=== PATIENT | female | born 1945 | race Caucasian/White ===

== ENCOUNTER 2018-05-09 18:16 | Inpatient (IN) ==
[2018-05-09 18:39] LABS: Baso % (Auto) 0.6 % (0.0-2.0); Eos % (Auto) 0.2 % (0.0-4.0); Hematocrit 44.2 % (35.0-46.0); Hemoglobin 15.4 gm/dL (11.6-15.3); Lymph # (Auto) 2.3 th/mm3 (1.0-4.8); Lymph % (Auto) 30.4 % (9.0-44.0); Mean Corpuscular HGB Conc 34.9 % (32.0-36.0); Mean Corpuscular Hemoglobin 30.1 pg (27.0-34.0); Mean Corpuscular Volume 86.4 fL (80.0-100.0); Mean Platelet Volume 8.9 fL (7.0-11.0); Mono # (Auto) 0.4 th/mm3 (0.0-0.9); Mono % (Auto) 5.8 % (0.0-8.0); Neut # (Auto) 4.9 th/mm3 (1.8-7.7); Platelet Count 242 th/mm3 (150-450); Red Blood Count 5.12 mil/mm3 (4.00-5.30); Red Cell Distribution Width 12.7 % (11.6-17.2); White Blood Count 7.7 th/mm3 (4.0-11.0)
--- NOTE | 2018-05-09 18:51 | CT ---
EXAM DATE: 05/09/2018 6:44 PM EST AGE/SEX: 72 years / Female INDICATIONS: Stroke alert. Confusion at yoga this morning and slurred speech. CLINICAL DATA: This is the patient's initial encounter. Patient reports that signs and symptoms have been present for 1 day and indicates a pain score of 0/10. MEDICAL/SURGICAL HISTORY: None. None. RADIATION DOSE: 60.17 CTDI (mGy) COMPARISON: No prior exams available for comparison. TECHNIQUE: CT of the head without contrast. Using automated exposure control and adjustment of the mA and/or kV according to patient size, radiation dose was kept as low as reasonably achievable to ob tain optimal diagnostic quality images. DICOM format image data is available electronically for revi ew and comparison. FINDINGS: Cerebrum: The ventricles are normal for age. No evidence of midline shift, mass lesion, hemorrhage or acute infarction. No extraaxial fluid collections are seen. Posterior Fossa: The cerebellum and brainstem are intact. The 4th ventricle is midline. The cerebe llopontine angle is unremarkable. Extracranial: The visualized portion of the orbits is intact. Skull: The calvaria is intact. No evidence of skull fracture. CONCLUSION: 1. Negative noncontrast CT brain. Report was called to Dr. Shelley at 6:48 pm. Electronically signed by: Kishore Claudio MD 05/09/2018 6:49 PM EST
[2018-05-09 18:52] LABS: Activated Partial Thrombo Time 26.5 sec (23.4-31.7); Prothrombin Time 10.2 sec (9.8-11.6)
[2018-05-09 18:56] LABS: Creatine Kinase 312 U/L (26-192)
[2018-05-09 18:57] LABS: Beta HCG,Quantitative 6 mIU/mL (0-5)
--- NOTE | 2018-05-09 19:03 | CT ---
EXAM DATE: 05/09/2018 6:56 PM EST AGE/SEX: 72 years / Female INDICATIONS: Stroke alert. Confusion and slurred speech at yoga this morning. CLINICAL DATA: This is the patient's initial encounter. Patient reports that signs and symptoms have been present for 1 day and indicates a pain score of 0/10. MEDICAL/SURGICAL HISTORY: None. None. RADIATION DOSE: 43.15 CTDI (mGy) ; Combined studies COMPARISON: [facility], CT HEAD W/O CONTRAST, 05/09/2018. . TECHNIQUE: Volumetric scanning was performed using a multi-row detector CT scanner during bolus infu flora of 85 ml Omnipaque 350 (iohexol) nonionic water-soluble contrast as a cumulative dose for multi ple exams. The data was post processed with a variety of visualization algorithms including full vo lume maximum intensity projection, multi-planar sliding thin slab reformation, curved planar reformat ion, and surface rendering techniques. Using automated exposure control and adjustment of the mA and /or kV according to patient size, radiation dose was kept as low as reasonably achievable to obtain o ptimal diagnostic quality images. DICOM format image data is available electronically for review and comparison. FINDINGS: Anterior Circulation: Intracranial Carotid Arteries: Patent. KIP: There is no evidence for aneurysm, vessel truncation or stenosis, and no evidence for vascular m alformation. MCA: There is no evidence for aneurysm, vessel truncation or stenosis, and no evidence for vascular m alformation. Posterior Circulation: Distal Vertebral Arteries: Dominant left vertebral artery. Basilar Artery: There is no evidence for aneurysm, vessel truncation or stenosis, and no evidence for vascular malformation. SLIP LASTER and Cerebellar Branches: There is no evidence for aneurysm, vessel truncation or stenosis, and no evidence for vascular malformation. CONCLUSION: 1. Unremarkable CTA examination of the head. Specifically, no evidence for large vessel occlusion. Report was called by Dr. Meneses to Dr. Benoit at 7:00 PM.] Electronically signed by: Jake Veronica MD 05/09/2018 7:01 PM EST
--- NOTE | 2018-05-09 19:06 | ED ---
HPI General Chief Complaint: Neuro Symptoms/Deficit Stated Complaint: Syncopal episode this am Time Seen by Provider: 05/09/18 18:29 Source: patient and family Mode of arrival: ambulatory Limitations: no limitations History of Present Illness HPI Narrative: Patient is a 72-year-old female, past medical history significant for TIAs on aspirin but no blood thinners, who presents with complaint of difficulty speaking, slurred speech, dizziness that began at approximately 9 AM this morning with some confusion. Her family thinks her symptoms have slightly improved but are definitely still present with the exception of the dizziness. She denies any focal numbness or weakness at this time and denies any difficulty swallowing. No fevers nor chills. No chest pain , abdominal pain, shortness of breath. No cough nor congestion. She has not had any recent trauma. Onset (ago): hour(s) Timing confirmed by: spouse Location: Reports speech, dysarthria and altered History of same: Yes Severity: moderate Relieving factors: time Exacerbating factors: none Context: Reports sudden onset On Anticoagulants: No Associated symptoms: Reports confusion Treatments Prior to Arrival: Reports Aspirin Related Data Home Medications Medication Instructions Recorded Confirmed aspirin 81 mg PO DAILY 05/09/18 05/09/18 losartan-hydrochlorothiazide 1 tab PO DAILY 05/09/18 05/09/18 simvastatin 20 mg PO QPM 05/09/18 05/09/18 Allergies Allergy/AdvReac Type Severity Reaction Status Date / Time No Known Allergies Allergy Verified 05/09/18 18:38 Review of Systems ROS: all other systems reviewed are negative [facility] Family History Family History Mother Stroke Other Cardiovascular disease Social History Social History Substance History: No History of Abuse Second Hand Smoke Exposure: No Smoking Status: Former smoker How Often Do You Have a Drink Containing Alcohol: 2 to 3 times a week Recent Travel in [facility] within the Last 8 Weeks: No Recent Out of Country Travel within the Last 8 Weeks: No Exam Narrative Exam Narrative: GENERAL: Well-appearing female in no acute distress SKIN: Focused skin assessment warm/dry. HEAD: Atraumatic. Normocephalic. EYES: Pupils equal and round. No scleral icterus. No injection or drainage. ENT: No nasal bleeding or discharge. Mucous membranes pink and moist. NECK: Trachea midline. No JVD. CARDIOVASCULAR: Regular rate and rhythm. No murmur appreciated. Intact and equal peripheral pulses. RESPIRATORY: No accessory muscle use. Clear to auscultation. Breath sounds equal bilaterally. GASTROINTESTINAL: Abdomen soft, non-tender, nondistended. Hepatic and splenic margins not palpable. MUSCULOSKELETAL: No obvious deformities. No clubbing. No cyanosis. No edema. NEUROLOGICAL: Awake and alert. Some dysarthria and aphasia. No dysmetria nor ataxia. No visual field deficits. No pronator drift. No facial droop. No numbness nor weakness focally. PSYCHIATRIC: Appropriate mood and affect; insight and judgment normal. Course Initial Documented Vital Signs Pulse Rate 79 05/09/18 18:29 Pulse Oximetry 98 05/09/18 18:29 Last Documented Vital Signs Temperature 98.4 F 05/10/18 12:00 Pulse Rate 62 05/10/18 12:00 Respiratory Rate 20 05/10/18 12:00 Blood Pressure 144/82 H 05/10/18 12:00 Pulse Oximetry 96 05/10/18 12:00 Sign Out Sign Out Data: Patient Sign Out occurred on 05/09/18 at 19:27. Patient's care was discussed, and care was transferred from Vanessa Shelley MD to Barbara Lee MD. Sign Out Comment: Labs, EKG pending. Dr Lee made aware of Dr Benoit's recommendations. Last updated by Vanessa Shelley MD at 05/09/18 19:16 Post-Handoff Eval: Accepted in transfer of care from Dr. Shelley Medical Decision Making [facility] Narrative Medical decision making narrative: Patient is a 72-year-old female who presents approximately 12 hours after the onset of slurred speech, aphasia, confusion with dizziness. The dizziness has resolved. She is alert but still confused with dysarthria and aphasia on arrival here thus stroke alert was then activated. CT of the head without contrast did not reveal any acute hemorrhage and CTAs were then done and did not reveal large thrombosis. EKG and labs pending at time of check out. Prior to check out Dr Benoit recommended: Head of bed flat with NS @ 70cc/hr MRI, Holter monitor and Echo. 75 mg plavix in addition to her 325 mg aspirin if she passes her swallow Heparin 5000 units bid subcutaneously unless she is in Afib. If she is in Afib , he wants to be called back. Accepted in transfer of care from Dr. Shelley for follow-up of pending labs EKG shows NSR, no ST elevation or depression, and no arrhythmias. No significant T -wave inversions. And imaging patient has already had CT noncontrast and CTA's resulted and reviewed with the neurologist with neurology recommendations. Patient will require admission to medicine service. Patient here does not appear to have slurring of speech at this time but does have significant memory disturbance and has repetitive questioning. EKG is sinus rhythm with no acute ST elevation injury pattern or ectopy noted. At 8:10 PM patient's case discussed with on-call medicine coverage Dr. Rai for admission she has been informed of the recommendations per the neurologist and states she will enter these orders along with the consult for neurology Medical Screen Exam Complete: Yes Emergency Medical Condition: Yes Differential Diagnosis Differential Diagnosis: Differential diagnosis includes but is not limited to TIA, CVA, hypoglycemia. Medical Records Medical records reviewed: Yes I reviewed the patient's medical records. Lab Data Lab results reviewed: Yes I reviewed the patient's lab results. Result diagrams: 05/09/18 18:22 05/09/18 18:22 Lab Results 05/09/18 05/09/18 05/09/18 Range/Units 18:22 18:22 18:22 CBC w Diff Auto diff final WBC 7.7 (4.0-11.0) th/mm3 RBC 5.12 (4.00-5.30) mil/mm3 Hgb 15.4 H (11.6-15.3) gm/dL Hct 44.2 (35.0-46.0) % MCV 86.4 (80.0-100.0) fL MCH 30.1 (27.0-34.0) pg MCHC 34.9 (32.0-36.0) % RDW 12.7 (11.6-17.2) % Plt Count 242 (150-450) th/mm3 MPV 8.9 (7.0-11.0) fL Neut % (Auto) 63.0 (16.0-70.0) % Lymph % (Auto) 30.4 (9.0-44.0) % [place] % (Auto) 5.8 (0.0-8.0) % Eos % (Auto) 0.2 (0.0-4.0) % Baso % (Auto) 0.6 (0.0-2.0) % Neut # (Auto) 4.9 (1.8-7.7) th/mm3 Lymph # (Auto) 2.3 (1.0-4.8) th/mm3 [place] # (Auto) 0.4 (0.0-0.9) th/mm3 Eos # (Auto) 0.0 (0.0-0.4) th/mm3 Baso # (Auto) 0.0 (0.0-0.2) th/mm3 WBC Differential . Differential Comment . PT 10.2 (9.8-11.6) sec INR 1.0 Ratio APTT 26.5 (23.4-31.7) sec Fibrinogen 336 (227-377) mg/dL Sodium 139 (136-145) meq/L Potassium 3.7 (3.5-5.1) meq/L Chloride 104 (98-107) meq/L Carbon Dioxide 26.7 (21.0-32.0) meq/L Anion Gap 8 (5-15) meq/L BUN 13 (7-18) mg/dL Creatinine 0.88 (0.50-1.00) mg/dL Estimated GFR 64 L (>89) mL/min POC Glucose (68-110) mg/dl Random Glucose 106 (74-106) mg/dL Calcium 9.4 (8.5-10.1) mg/dL Total Creatine Kinase 312 H (26-192) U/L CK-MB (CK-2) 1.7 (0.5-3.6) ng/mL CK-MB (CK-2) % 0.5 (0.0-4.0) % Troponin I Less than 0.02 L (0.02-0.05) ng/mL Triglycerides (42-150) mg/dL Cholesterol (120-200) mg/dL LDL Cholesterol, Calc (0-99) mg/dL HDL Cholesterol (40.0-60.0) mg/dL Cholesterol/HDL Ratio Ratio TSH (0.358-3.740) uIU/mL Beta HCG, Quant 6 H (0-5) mIU/mL Urine Color (Yellw/Straw) Urine Clarity (Clear) Urine pH (5.0-8.5) Ur Specific [place] (1.002-1.035) Urine Protein (Neg-Trace) mg/dL Urine Glucose (UA) (Negative) mg/dL Urine Ketones (Negative) mg/dL Urine Occult Blood (Negative) Urine Nitrate (Negative) Urine Bilirubin (Negative) Urine Urobilinogen (Less than 2) mg/dL Ur Leukocyte Esterase (Negative) Urine RBC (0-3) /hpf Micro UA Comment Ur Microscopic Review Urine Culture Comments Urine Opiates Screen (Neg) Ur Barbiturates Screen (Neg) Ur Amphetamines Screen (Neg) U Benzodiazepines Scrn (Neg) Urine Cocaine Screen (Neg) U Cannabinoids Screen (Neg) Blood Type Antibody Screen 05/09/18 05/09/18 05/09/18 Range/Units 18:22 19:10 19:10 CBC w Diff WBC (4.0-11.0) th/mm3 RBC (4.00-5.30) mil/mm3 Hgb (11.6-15.3) gm/dL Hct (35.0-46.0) % MCV (80.0-100.0) fL MCH (27.0-34.0) pg MCHC (32.0-36.0) % RDW (11.6-17.2) % Plt Count (150-450) th/mm3 MPV (7.0-11.0) fL Neut % (Auto) (16.0-70.0) % Lymph % (Auto) (9.0-44.0) % [place] % (Auto) (0.0-8.0) % Eos % (Auto) (0.0-4.0) % Baso % (Auto) (0.0-2.0) % Neut # (Auto) (1.8-7.7) th/mm3 Lymph # (Auto) (1.0-4.8) th/mm3 [place] # (Auto) (0.0-0.9) th/mm3 Eos # (Auto) (0.0-0.4) th/mm3 Baso # (Auto) (0.0-0.2) th/mm3 WBC Differential Differential Comment PT (9.8-11.6) sec INR Ratio APTT (23.4-31.7) sec Fibrinogen (227-377) mg/dL Sodium (136-145) meq/L Potassium (3.5-5.1) meq/L Chloride (98-107) meq/L Carbon Dioxide (21.0-32.0) meq/L Anion Gap (5-15) meq/L BUN (7-18) mg/dL Creatinine (0.50-1.00) mg/dL Estimated GFR (>89) mL/min POC Glucose (68-110) mg/dl Random Glucose (74-106) mg/dL Calcium (8.5-10.1) mg/dL Total Creatine Kinase (26-192) U/L CK-MB (CK-2) (0.5-3.6) ng/mL CK-MB (CK-2) % (0.0-4.0) % Troponin I (0.02-0.05) ng/mL Triglycerides (42-150) mg/dL Cholesterol (120-200) mg/dL LDL Cholesterol, Calc (0-99) mg/dL HDL Cholesterol (40.0-60.0) mg/dL Cholesterol/HDL Ratio Ratio TSH (0.358-3.740) uIU/mL Beta HCG, Quant (0-5) mIU/mL Urine Color Straw (Yellw/Straw) Urine Clarity Clear (Clear) Urine pH 7.5 (5.0-8.5) Ur Specific [place] Less/equal 1.005 (1.002-1.035) Urine Protein Negative (Neg-Trace) mg/dL Urine Glucose (UA) Negative (Negative) mg/dL Urine Ketones Negative (Negative) mg/dL Urine Occult Blood Small H (Negative) Urine Nitrate Negative (Negative) Urine Bilirubin Negative (Negative) Urine Urobilinogen 0.2 (Less than 2) mg/dL Ur Leukocyte Esterase Negative (Negative) Urine RBC 0-3 (0-3) /hpf Micro UA Comment Culture not ind Ur Microscopic Review Microscopic reviewed Urine Culture Comments Culture not ind Urine Opiates Screen Neg (Neg) Ur Barbiturates Screen Neg (Neg) Ur Amphetamines Screen Neg (Neg) U Benzodiazepines Scrn Neg (Neg) Urine Cocaine Screen Neg (Neg) U Cannabinoids Screen Neg (Neg) Blood Type O Positive Antibody Screen Negative 05/10/18 05/10/18 05/10/18 Range/Units 04:55 04:55 09:29 CBC w Diff WBC (4.0-11.0) th/mm3 RBC (4.00-5.30) mil/mm3 Hgb (11.6-15.3) gm/dL Hct (35.0-46.0) % MCV (80.0-100.0) fL MCH (27.0-34.0) pg MCHC (32.0-36.0) % RDW (11.6-17.2) % Plt Count (150-450) th/mm3 MPV (7.0-11.0) fL Neut % (Auto) (16.0-70.0) % Lymph % (Auto) (9.0-44.0) % [place] % (Auto) (0.0-8.0) % Eos % (Auto) (0.0-4.0) % Baso % (Auto) (0.0-2.0) % Neut # (Auto) (1.8-7.7) th/mm3 Lymph # (Auto) (1.0-4.8) th/mm3 [place] # (Auto) (0.0-0.9) th/mm3 Eos # (Auto) (0.0-0.4) th/mm3 Baso # (Auto) (0.0-0.2) th/mm3 WBC Differential Differential Comment PT (9.8-11.6) sec INR Ratio APTT (23.4-31.7) sec Fibrinogen (227-377) mg/dL Sodium (136-145) meq/L Potassium (3.5-5.1) meq/L Chloride (98-107) meq/L Carbon Dioxide (21.0-32.0) meq/L Anion Gap (5-15) meq/L BUN (7-18) mg/dL Creatinine (0.50-1.00) mg/dL Estimated GFR (>89) mL/min POC Glucose 123 H (68-110) mg/dl Random Glucose (74-106) mg/dL Calcium (8.5-10.1) mg/dL Total Creatine Kinase (26-192) U/L CK-MB (CK-2) (0.5-3.6) ng/mL CK-MB (CK-2) % (0.0-4.0) % Troponin I (0.02-0.05) ng/mL Triglycerides 145 (42-150) mg/dL Cholesterol 209 H (120-200) mg/dL LDL Cholesterol, Calc 123 H (0-99) mg/dL HDL Cholesterol 57.3 (40.0-60.0) mg/dL Cholesterol/HDL Ratio 3.64 Ratio TSH 1.010 (0.358-3.740) uIU/mL Beta HCG, Quant (0-5) mIU/mL Urine Color (Yellw/Straw) Urine Clarity (Clear) Urine pH (5.0-8.5) Ur Specific [place] (1.002-1.035) Urine Protein (Neg-Trace) mg/dL Urine Glucose (UA) (Negative) mg/dL Urine Ketones (Negative) mg/dL Urine Occult Blood (Negative) Urine Nitrate (Negative) Urine Bilirubin (Negative) Urine Urobilinogen (Less than 2) mg/dL Ur Leukocyte Esterase (Negative) Urine RBC (0-3) /hpf Micro UA Comment Ur Microscopic Review Urine Culture Comments Urine Opiates Screen (Neg) Ur Barbiturates Screen (Neg) Ur Amphetamines Screen (Neg) U Benzodiazepines Scrn (Neg) Urine Cocaine Screen (Neg) U Cannabinoids Screen (Neg) Blood Type Antibody Screen 05/10/18 Range/Units 10:00 CBC w Diff WBC (4.0-11.0) th/mm3 RBC (4.00-5.30) mil/mm3 Hgb (11.6-15.3) gm/dL Hct (35.0-46.0) % MCV (80.0-100.0) fL MCH (27.0-34.0) pg MCHC (32.0-36.0) % RDW (11.6-17.2) % Plt Count (150-450) th/mm3 MPV (7.0-11.0) fL Neut % (Auto) (16.0-70.0) % Lymph % (Auto) (9.0-44.0) % [place] % (Auto) (0.0-8.0) % Eos % (Auto) (0.0-4.0) % Baso % (Auto) (0.0-2.0) % Neut # (Auto) (1.8-7.7) th/mm3 Lymph # (Auto) (1.0-4.8) th/mm3 [place] # (Auto) (0.0-0.9) th/mm3 Eos # (Auto) (0.0-0.4) th/mm3 Baso # (Auto) (0.0-0.2) th/mm3 WBC Differential Differential Comment PT (9.8-11.6) sec INR Ratio APTT (23.4-31.7) sec Fibrinogen (227-377) mg/dL Sodium (136-145) meq/L Potassium (3.5-5.1) meq/L Chloride (98-107) meq/L Carbon Dioxide (21.0-32.0) meq/L Anion Gap (5-15) meq/L BUN (7-18) mg/dL Creatinine (0.50-1.00) mg/dL Estimated GFR (>89) mL/min POC Glucose (68-110) mg/dl Random Glucose (74-106) mg/dL Calcium (8.5-10.1) mg/dL Total Creatine Kinase 248 H (26-192) U/L CK-MB (CK-2) 1.3 (0.5-3.6) ng/mL CK-MB (CK-2) % 0.5 (0.0-4.0) % Troponin I (0.02-0.05) ng/mL Triglycerides (42-150) mg/dL Cholesterol (120-200) mg/dL LDL Cholesterol, Calc (0-99) mg/dL HDL Cholesterol (40.0-60.0) mg/dL Cholesterol/HDL Ratio Ratio TSH (0.358-3.740) uIU/mL Beta HCG, Quant (0-5) mIU/mL Urine Color (Yellw/Straw) Urine Clarity (Clear) Urine pH (5.0-8.5) Ur Specific [place] (1.002-1.035) Urine Protein (Neg-Trace) mg/dL Urine Glucose (UA) (Negative) mg/dL Urine Ketones (Negative) mg/dL Urine Occult Blood (Negative) Urine Nitrate (Negative) Urine Bilirubin (Negative) Urine Urobilinogen (Less than 2) mg/dL Ur Leukocyte Esterase (Negative) Urine RBC (0-3) /hpf Micro UA Comment Ur Microscopic Review Urine Culture Comments Urine Opiates Screen (Neg) Ur Barbiturates Screen (Neg) Ur Amphetamines Screen (Neg) U Benzodiazepines Scrn (Neg) Urine Cocaine Screen (Neg) U Cannabinoids Screen (Neg) Blood Type Antibody Screen Imaging Data Radiologist's impression: Chest X-Ray 05/09/18 18:29 CONCLUSION: Linear atelectasis left costophrenic angle; otherwise, the lungs are clear.. Head CT 05/09/18 18:29 CONCLUSION: 1. Negative noncontrast CT brain. Report was called to Dr. Shelley at 6:48 pm. Head CTA 05/09/18 18:29 CONCLUSION: 1. Unremarkable CTA examination of the head. Specifically, no evidence for large vessel occlusion. Report was called by Dr. Meneses to Dr. Benoit at 7:00 PM.] Neck CTA 05/09/18 18:29 CONCLUSION: 1. No hemodynamically significant carotid flow-limiting stenosis or dissection. 2. Very small caliber right vertebral artery with dominant left vertebral artery. 3. 2 cm nodule in the thyroid isthmus. This can be further evaluated with ultrasound on an outpatient basis as clinically indicated. Head MRI 05/10/18 07:03 CONCLUSION: 1. No acute infarct, acute hemorrhage, midline shift or extra-axial fluid collection. 2. Minimal periventricular and subcortical white matter small vessel ischemic changes bilaterally. 3. Empty sella. Head MRA 05/10/18 07:03 CONCLUSION: 1. 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 This area measures approximately 2.7 x 3.9 mm. The left A1 appears to arise directly from this. 2. Incidental atretic right vertebral. 3. No large or central vessel occlusion. ECG Data Attestation: I personally reviewed and interpreted this ECG as follows: Prior ECG tracings: not available for review Discharge Plan Discharge Disposition Patient Disposition: 30 Still Patient Discharge Condition Condition: Stable Discharge Details Diagnosis: CVA (cerebral vascular accident) Physicians Team ED Provider: Barbara Lee Primary Care Provider: Micheal Kc Attending Provider: Jamie Woodard Status ED Status: Left Department Discharge Information Discharge Date/Time: 05/09/18 22:00
[2018-05-09 19:08] LABS: CKMB Percent 0.5 % (0.0-4.0); Creatine Kinase MB 1.7 ng/mL (0.5-3.6)
--- NOTE | 2018-05-09 19:13 | XR ---
EXAM DATE: 05/09/2018 7:07 PM EST AGE/SEX: 72 years / Female INDICATIONS: Stroke alert. CLINICAL DATA: This is the patient's initial encounter. Patient reports that signs and symptoms have been present for 1 day and indicates a pain score of Nonresponsive. MEDICAL/SURGICAL HISTORY: None. None. COMPARISON: No prior exams available for comparison. FINDINGS: A single AP view of the chest demonstrates the lungs to be symmetrically aerated without evidence of mass, infiltrate or effusion. Linear atelectasis in the left costophrenic angle. The cardiomediastin al contours are unremarkable. Moderate degenerative changes in bilateral AC joints.. CONCLUSION: Linear atelectasis left costophrenic angle; otherwise, the lungs are clear.. Electronically signed by: Kishore Claudio MD 05/09/2018 7:11 PM EST
[2018-05-09 19:26] LABS: Bilirubin,Urine Negative (Negative); Clarity,Urine Clear (Clear); Glucose,Urine (UA) Negative (Negative); Leukocyte Esterase,Urine Negative (Negative); Nitrite,Urine Negative (Negative); PH,Urine 7.5 (5.0-8.5); Specific Gravity,Urine Less/Equal 1.005 (1.002-1.035); Urobilinogen,Urine 0.2 mg/dL (Less than 2)
[2018-05-09 19:29] LABS: Color,Urine Straw (Yellw/Straw)
[2018-05-09 19:31] LABS: RBC,Urine 0-3 /hpf (0-3)
[2018-05-09 19:35] LABS: Amphetamine Screen,Urine Neg (Neg); Barbiturate Screen,Urine Neg (Neg); Cannabinoid Screen,Urine Neg (Neg); Cocaine Screen,Urine Neg (Neg)
--- NOTE | 2018-05-09 19:35 | CT ---
EXAM DATE: 05/09/2018 7:12 PM EST AGE/SEX: 72 years / Female INDICATIONS: Stroke alert. Confusion and slurred speech during yoga this morning. CLINICAL DATA: This is the patient's initial encounter. Patient reports that signs and symptoms have been present for 1 day and indicates a pain score of 0/10. MEDICAL/SURGICAL HISTORY: None. None. RADIATION DOSE: 43.15 CTDI (mGy) ; Combined studies COMPARISON: No prior exams available for comparison. TECHNIQUE: Volumetric scanning was performed using a multirow detector CT scanner during bolus infus ion of 85 ml Visipaque 320 (iodixanol) nonionic water-soluble contrast as a cumulative dose for mult iple exams. The data was postprocessed with a variety of visualization algorithms including full-vo lume maximum intensity projection, multiplanar sliding thin-slab reformation, curved-planar reformati on, and surface-rendering techniques. Using automated exposure control and adjustment of the mA and/ or kV according to patient size, radiation dose was kept as low as reasonably achievable to obtain op timal diagnostic quality images. DICOM format image data is available electronically for review and comparison. Percent stenosis is calculated using the diameter of the stenotic region over the diameter of the nor mal distal internal carotid artery. FINDINGS: Aortic Arch: There is a three-vessel origin of the great vessels from the aorta. No evidence of ost ial narrowing Right Carotid: The common carotid artery is intact. The carotid bulb has a normal configuration wit hout ulceration or narrowing. The internal carotid artery lumen is patent. There is mild probable re dundancy in the mid to distal cervical segment. I believe this is too focal to reflect beaded appeara nce. The external carotid artery is intact. Left Carotid: The common carotid artery is intact. The carotid bulb has a normal configuration with out ulceration or narrowing. Minimal calcified plaque at the origin of the internal carotid artery w ithout flow-limiting stenosis. The internal carotid artery lumen is otherwise patent. The external c arotid artery is intact. Vertebrals: Dominant left vertebral artery with very small caliber right vertebral artery throughout . General Findings: Lung apices are clear. 1.8 x 2.0 cm hypodense nodule in the isthmus of the thyroid. No significant adenopathy. CONCLUSION: 1. No hemodynamically significant carotid flow-limiting stenosis or dissection. 2. Very small caliber right vertebral artery with dominant left vertebral artery. 3. 2 cm nodule in the thyroid isthmus. This can be further evaluated with ultrasound on an outpatien t basis as clinically indicated. Electronically signed by: Jake Veronica MD 05/09/2018 7:34 PM EST
[2018-05-09 19:38] LABS: Chloride 104 meq/L (98-107); Potassium 3.7 meq/L (3.5-5.1); Sodium 139 meq/L (136-145)
[2018-05-09 19:40] LABS: Calcium 9.4 mg/dL (8.5-10.1)
[2018-05-09 19:41] LABS: Opiate Screen,Urine Neg (Neg)
[2018-05-09 19:41] LABS: Anion Gap 8 meq/L (5-15); Blood Urea Nitrogen 13 mg/dL (7-18); Carbon Dioxide 26.7 meq/L (21.0-32.0); Glucose,Random 106 mg/dL (74-106)
[2018-05-09 19:44] LABS: Glomerular Filtration Rate 64 mL/min (>89)
[2018-05-09] MEDS: Sod Chloride 0.9% Inj 1,000 ML IV.CONT SCH ×2 (20:00→23:33)
[2018-05-09] MEDS ORDERED: Dextrose 50% in Water 50 ML Vial IV.PUSH PRN (20:09)
[2018-05-09] MEDS: Heparin - SQ 10,000 UNITS/ML Vial SQ SCH (20:58)
[2018-05-10] MEDS: Heparin - SQ 10,000 UNITS/ML Vial SQ SCH ×2 (05:00→11:49)
--- NOTE | 2018-05-10 07:53 | P.HP ---
History of Present Illness Primary Care Physician: Micheal Kc MD Chief Complaint: Speech difficulties and dizziness History of Present Illness: This is a very pleasant 72-year-old female with a known medical history of hypertension, hyperlipidemia and history of TIA who presented to the ED with complaints of difficulty speaking, slurred speech and dizziness with confusion. Patient states that her noticed some confusion and dizziness yesterday morning, he states that she was confused all day and repeating questions with short-term memory loss. She does have a history of TIA with similar complaints roughly 5 years ago and at that time an acute stroke was ruled out. He was told that she had a TIA. It should be noted that patient had a headache the day before symptoms started, reportedly sounds like a tension headache, she took Aleve which did relieve the headache. Denies any recent illness including fever, chills, cough, shortness of breath, chest pain, abdominal pain, nausea, vomiting, diarrhea or dysuria. Patient states that her blood pressure has been well controlled at home. Follows closely with her PCP. Did states she took her medications yesterday prior to symptoms. At the time of assessment symptoms are improving, she does still have some difficulty stating who the president is. Denies any further dizziness. - Diagnosis (1) CVA (cerebral vascular accident) Inpatient Certification: I certify that the inpatient services were ordered in accordance with Medicare regulations governing the order. This includes certification that hospital inpatient services are reasonable and necessary and in the case of services not specified as inpatient-only under 42 CFR 419.22(n), that they are appropriately provided as inpatient services in accordance to with the 2-midnight benchmark under 43 CFR 412.3(e) Estimated Total Length of Stay (Days): 2 Plans for Post Hospital Care: Not yet determined Review of Systems All other systems reviewed negative except as stated in HPI PMFSH - History History Provided By: Patient, Family Member - Medical History Medical History: Medical History (Last Reviewed 05/10/18 @ 07:54 by Ame Barrow) History of TIA (transient ischemic attack) History of high cholesterol History of hypertension - Surgical History Surgical History: Surgical History (Last Reviewed 05/10/18 @ 07:54 by Ame Barrow) History of section - Family History Family History: Family History (Last Updated 05/10/18 @ 08:14 by Ame Barrow) Mother Stroke Other Cardiovascular disease - Social History I have reviewed the patient's Social History: Yes - Tobacco History Second Hand Smoke Exposure: No Tobacco Use In Past 30 Days: No Smoking Status: Former smoker - Alcohol History How Often Do You Have a Drink Containing Alcohol: 2 to 3 times a week - Substance Use History Substance History: No History of Abuse - Travel History Recent Travel in the [place] Within the Last 8 Weeks: No Recent Travel Out of the Country Within the Last 8 Weeks: No - Immunization History Tetanus Immunization: >5 Years Hx Influenza Vaccine This Season: No Medications and Allergies Active Medications: Active Medications Aspirin (Aspirin) 325 mg PO DAILY [facility] Clopidogrel Bisulfate (Plavix) 75 mg PO DAILY [facility] Dextrose (D50w Vial) 50 ml IV.PUSH UNSCH PRN PRN Reason: PER HYPOGLYCEMIA PROTOCOL Glucagon (Glucagon Inj) 1 mg OTHER UNSCH PRN PRN Reason: for Hypoglycemia Protocol Heparin Sodium (Porcine) (Heparin Inj) 5,000 units SQ Q8H [facility] Last Admin: 05/10/18 05:00 Dose: 5,000 units Sodium Chloride (Ns Inj) 1,000 mls @ 70 mls/hr IV.CONT .[id number] [facility] Last Admin: 05/09/18 23:33 Dose: 70 mls/hr Sodium Chloride (Ns Flush) 2 ml IV.FLUSH PRN PRN PRN Reason: FLUSH AFTER USING IV ACCESS Sodium Chloride (Ns Flush) 2 ml IV.FLUSH BID [facility] Last Admin: 05/09/18 22:22 Dose: Not Given Allergies Allergy/AdvReac Type Severity Reaction Status Date / Time No Known Allergies Allergy Verified 05/09/18 18:38 Home Medications Medication Instructions Recorded Confirmed Type aspirin 81 mg PO DAILY 05/09/18 05/09/18 History losartan-hydrochlorothiazide 1 tab PO DAILY 05/09/18 05/09/18 History simvastatin 20 mg PO QPM 05/09/18 05/09/18 History Exam Vital signs: Vital Signs 05/09/18 18:29 05/09/18 18:35 05/09/18 19:36 Temperature 97.7 F Pulse Rate 79 79 Respiratory Rate 16 Blood Pressure 156/79 H Pulse Oximetry 98 98 05/09/18 19:57 05/09/18 22:37 05/10/18 00:00 Temperature 97.0 F L 96.5 F L Pulse Rate 66 57 L 59 L Respiratory Rate 15 18 18 Blood Pressure 158/83 H 141/78 H 174/77 H Pulse Oximetry 98 95 97 Intake & Output 05/09/18 05/10/18 05/10/18 18:59 06:59 18:59 Intake Total 1000 / 1000 Output Total 0 / 0 Balance 1000 / 1000 Weight 75 kg 74 kg Intake: IV 1000 / 1000 NS Inj 1,000 ML @ 70 mls/hr IV. 1000 / 1000 CONT .[id number] REX Rx#: [id number] Oral 0 / 0 Output: Urine 0 / 0 Other: Weight On Admission 75.2 kg Narrative: GENERAL: Well-developed, well-nourished patient in [facility]. SKIN: Warm and dry. No rash. HEAD: Normocephalic. Atraumatic. EYES: Pupils equal and round. No scleral icterus. No injection or drainage. ENT: No nasal bleeding or discharge. Mucous membranes pink and moist. NECK: Supple. Trachea midline. CARDIOVASCULAR: Regular rate and rhythm. S1, S2 noted. No murmur appreciated. RESPIRATORY: No accessory muscle use. Clear to auscultation. Breath sounds equal bilaterally. GASTROINTESTINAL: Abdomen soft, non-tender, nondistended. Normoactive bowel sounds x4. MUSCULOSKELETAL: No obvious deformities. Extremities without clubbing, cyanosis , or edema. NEUROLOGICAL: Awake and alert. No obvious cranial nerve deficits. Motor grossly within normal limits. 5/5 muscle strength in bilateral upper and lower extremities. Normal speech. PSYCHIATRIC: Appropriate mood and affect; insight and judgment normal. Results - Labs CBC & Chem 7: 05/09/18 18:22 05/09/18 18:22 Labs: Laboratory Results - last 24 hr 05/09/18 05/09/18 05/09/18 18:22 18:22 18:22 CBC w Diff Auto diff final WBC 7.7 RBC 5.12 Hgb 15.4 H Hct 44.2 MCV 86.4 MCH 30.1 MCHC 34.9 RDW 12.7 Plt Count 242 MPV 8.9 Neut % (Auto) 63.0 Lymph % (Auto) 30.4 [place] % (Auto) 5.8 Eos % (Auto) 0.2 Baso % (Auto) 0.6 Neut # (Auto) 4.9 Lymph # (Auto) 2.3 [place] # (Auto) 0.4 Eos # (Auto) 0.0 Baso # (Auto) 0.0 WBC Differential . Differential Comment . PT 10.2 INR 1.0 APTT 26.5 Fibrinogen 336 Sodium 139 Potassium 3.7 Chloride 104 Carbon Dioxide 26.7 Anion Gap 8 BUN 13 Creatinine 0.88 Estimated GFR 64 L Random Glucose 106 Calcium 9.4 Total Creatine Kinase 312 H CK-MB (CK-2) 1.7 CK-MB (CK-2) % 0.5 Troponin I Less than 0.02 L Beta HCG, Quant 6 H Urine Color Urine Clarity Urine pH Ur Specific [place] Urine Protein Urine Glucose (UA) Urine Ketones Urine Occult Blood Urine Nitrate Urine Bilirubin Urine Urobilinogen Ur Leukocyte Esterase Urine RBC Micro UA Comment Ur Microscopic Review Urine Culture Comments Urine Opiates Screen Ur Barbiturates Screen Ur Amphetamines Screen U Benzodiazepines Scrn Urine Cocaine Screen U Cannabinoids Screen Blood Type Antibody Screen 05/09/18 05/09/18 05/09/18 18:22 19:10 19:10 CBC w Diff WBC RBC Hgb Hct MCV MCH MCHC RDW Plt Count MPV Neut % (Auto) Lymph % (Auto) [place] % (Auto) Eos % (Auto) Baso % (Auto) Neut # (Auto) Lymph # (Auto) [place] # (Auto) Eos # (Auto) Baso # (Auto) WBC Differential Differential Comment PT INR APTT Fibrinogen Sodium Potassium Chloride Carbon Dioxide Anion Gap BUN Creatinine Estimated GFR Random Glucose Calcium Total Creatine Kinase CK-MB (CK-2) CK-MB (CK-2) % Troponin I Beta HCG, Quant Urine Color Straw Urine Clarity Clear Urine pH 7.5 Ur Specific [place] Less/equal 1.005 Urine Protein Negative Urine Glucose (UA) Negative Urine Ketones Negative Urine Occult Blood Small H Urine Nitrate Negative Urine Bilirubin Negative Urine Urobilinogen 0.2 Ur Leukocyte Esterase Negative Urine RBC 0-3 Micro UA Comment Culture not ind Ur Microscopic Review Microscopic reviewed Urine Culture Comments Culture not ind Urine Opiates Screen Neg Ur Barbiturates Screen Neg Ur Amphetamines Screen Neg U Benzodiazepines Scrn Neg Urine Cocaine Screen Neg U Cannabinoids Screen Neg Blood Type O Positive Antibody Screen Negative - Imaging Impressions Chest X-Ray 05/09/18 18:29 CONCLUSION: Linear atelectasis left costophrenic angle; otherwise, the lungs are clear.. Head CT 05/09/18 18:29 CONCLUSION: 1. Negative noncontrast CT brain. Report was called to Dr. Shelley at 6:48 pm. Head CTA 05/09/18 18:29 CONCLUSION: 1. Unremarkable CTA examination of the head. Specifically, no evidence for large vessel occlusion. Report was called by Dr. Meneses to Dr. Benoit at 7:00 PM.] Neck CTA 05/09/18 18:29 CONCLUSION: 1. No hemodynamically significant carotid flow-limiting stenosis or dissection. 2. Very small caliber right vertebral artery with dominant left vertebral artery. 3. 2 cm nodule in the thyroid isthmus. This can be further evaluated with ultrasound on an outpatient basis as clinically indicated. Caprini VTE Risk Assessment Caprini VTE Risk Assessment: Moderate/High Risk (score >= 2) Caprini Risk Assessment Model: Point Value = 1 Point Value = 2 Point Value = 3 Point Value = 5 Age 41-60 Minor surgery BMI > 25 kg/m2 Swollen legs Varicose veins or History of unexplained or recurrent spontaneous Oral contraceptives or hormone replacement Sepsis (< 1 month) Serious lung disease, including pneumonia (< 1 month) Abnormal pulmonary function Acute myocardial infarction Congestive heart failure (< 1 month) History of inflammatory bowel disease Medical patient at bed rest Age 61-74 Arthroscopic surgery Major open surgery (> 45 min) Laparoscopic surgery (> 45 min) Malignancy Confined to bed (> 72 hours) Immobilizing plaster cast Central venous access Age >= 75 History of VTE Family history of VTE Factor V Leiden Prothrombin [id number] Lupus anticoagulant Anticardiolipin antibodies Elevated serum homocysteine Heparin-induced thrombocytopenia Other congenital or acquired thrombophilia Stroke (< 1 month) Elective arthroplasty Hip, pelvis, or leg fracture Acute spinal cord injury (< 1 month) Prophylaxis Regimen: Total Risk Factor Score Risk Level Prophylaxis Regimen 0-1 Low Early ambulation 2 Moderate Order ONE of the following: *Sequential Compression Device (SCD) *Heparin 5000 units SQ BID 3-4 Higher Order ONE of the following medications: *Heparin 5000 units SQ TID *Enoxaparin/Lovenox 40 mg SQ daily (WT < 150 kg, CrCl > 30 mL/min) *Enoxaparin/Lovenox 30 mg SQ daily (WT < 150 kg, CrCl > 10-29 mL/min) *Enoxaparin/Lovenox 30 mg SQ BID (WT < 150 kg, CrCl > 30 mL/min) AND/OR *Sequential Compression Device (SCD) 5 or more Highest Order ONE of the following medications: *Heparin 5000 units SQ TID (Preferred with Epidurals) *Enoxaparin/Lovenox 40 mg SQ daily (WT < 150 kg, CrCl > 30 mL/min) *Enoxaparin/Lovenox 30 mg SQ daily (WT < 150 kg, CrCl > 10-29 mL/min) *Enoxaparin/Lovenox 30 mg SQ BID (WT < 150 kg, CrCl > 30 mL/min) AND *Sequential Compression Device (SCD) Assessment and Plan - Assessment (1) CVA (cerebral vascular accident) Code(s): I63.9 - Cerebral infarction, unspecified Status: Acute - Plan This is a 72-year-old female patient with: Possible acute CVA History of TIA -Patient presented with difficulty speaking, slurred speech, problems with short -term memory and dizziness. Symptoms resolving, patient is still having some trouble with memory -CT of the head is negative without any acute findings. -Head and neck CTA negative for any acute findings. Incidentally found a thyroid nodule, will recommend outpatient follow-up. -Neurology consulted, awaiting input and recommendations. -EKG reviewed showing normal sinus rhythm with controlled heart rate, no ST changes to indicate any ischemia, no arrhythmias. -CBC and BMP reviewed, essentially unremarkable. -Continue on cardiac telemetry, monitor for any arrhythmias. No arrhythmias overnight. -Echocardiogram ordered and pending. Follow. -Patient is on aspirin and Plavix at home. Will continue. -No dysphagia noted, place on cardiac diet. -Awaiting hemoglobin a1c, lipid panel. Mildly elevated CPK -Patient continued on IV fluids overnight. Will continue to monitor. Encourage PO hydration. Hypertension, chronic: Allow for permissive hypertension at this time. Monitor blood pressure trends. Hyperlipidemia, chronic: We will continue home statin. Thyroid nodule -Incidentally found on CTA of the neck. Will recommend outpatient follow-up. Stable at this time. Will add TSH level. DVT prophylaxis: SCDs. Heparin. Discharge Planning: Awaiting MRI results.
[2018-05-10 08:58] VITALS: RESP 20; O2SAT 96
[2018-05-10] MEDS ORDERED: Aspirin 325 MG Tablet PO SCH (09:00)
[2018-05-10 10:26] LABS: Chol/HDL Ratio 3.64 Ratio; HDL Cholesterol 57.3 mg/dL (40.0-60.0)
[2018-05-10 10:57] LABS: CKMB Percent 0.5 % (0.0-4.0); Creatine Kinase MB 1.3 ng/mL (0.5-3.6)
--- NOTE | 2018-05-10 11:39 | ECHRPT ---
Indication: CONCLUSIONS The left ventricular systolic function is normal with an estimated ejection fraction in the range of 60-65%. Normal left ventricular size. Wall thickness is normal. No regional wall motion abnormalities are pr esent. Minimal aortic leaflet sclerosis. Trace mitral valve regurgitation. BP: / HR: Rhythm: Sinus MEASUREMENTS (Male / Female) Normal Values Technical Quality:Good 2D ECHO LV Diastolic Diameter PLAX 4.0 cm 4.2 - 5.9 / 3.9 - 5.3 cm LV Systolic Diameter PLAX 2.9 cm IVS Diastolic Thickness 1.1 cm 0.6 - 1.0 / 0.6 - 0.9 cm LVPW Diastolic Thickness 1.1 cm 0.6 - 1.0 / 0.6 - 0.9 cm LV Relative Wall Thickness 0.5 LVOT Diameter 1.8 cm LA Systolic Diameter LX 2.9 cm 3.0 - 4.0 / 2.7 - 3.8 cm LV Ejection Fraction MOD 4C 60.3 % LV Ejection Fraction 4C AL 61.3 % M-MODE Aortic Root Diameter MM 1.8 cm LA Systolic Diameter MM 3.8 cm LA Ao Ratio MM 2.1 AV Cusp Separation MM 1.8 cm DOPPLER AV Peak Velocity 167.0 cm/s AV Peak Gradient 11.2 mmHg LVOT Peak Velocity 131.0 cm/s LVOT Peak Gradient 6.9 mmHg AV Area Cont Eq pk 2.0 cm MV Area PHT 3.5 cm Mitral E Point Velocity 105.0 cm/s Mitral A Point Velocity 73.5 cm/s Mitral E to A Ratio 1.4 LV E' Lateral Velocity 7.9 cm/s Mitral E to LV E' Lateral Ratio 13.3 LV E' Septal Velocity 9.7 cm/s Mitral E to LV E' Septal Ratio 10.9 TR Peak Velocity 212.0 cm/s TR Peak Gradient 18.0 mmHg Right Atrial Pressure 10.0 mmHg Pulmonary Artery Systolic Pressu 28.0 mmHg Right Ventricular Systolic Press 28.0 mmHg PV Peak Velocity 88.2 cm/s PV Peak Gradient 3.1 mmHg FINDINGS LEFT VENTRICLE Normal left ventricular size. Wall thickness is normal. The left ventricular systolic function is normal with an estimated ejection fraction in the range of 60-65%. No regional wall motion abnormalities are present. RIGHT VENTRICLE Normal right ventricular size and systolic function. LEFT ATRIUM The left atrial size is normal. RIGHT ATRIUM The right atrial size is normal. ATRIAL SEPTUM Normal atrial septal thickness without atrial level shunting by limited color doppler interrogation. AORTA The aortic root and proximal ascending aorta are normal in size on limited imaging. MITRAL VALVE Structurally normal mitral valve. Trace mitral valve regurgitation. AORTIC VALVE Trileaflet aortic valve. No aortic valve stenosis or regurgitation. Minimal leaflet sclerosis. TRICUSPID VALVE Structurally normal tricuspid valve. No tricuspid valve stenosis or regurgitation. PULMONARY VALVE No pulmonary valve regurgitation or stenosis. VESSELS The inferior vena cava is normal in size. PERICARDIUM No pericardial effusion. Dm Early MD (Electronically Signed) Final Date:10 May 2018 11:39
[2018-05-10] MEDS: Sod Chloride 0.9% Inj 1,000 ML IV.CONT SCH (11:51)
[2018-05-10 12:51] VITALS: BP 144/82; PULSE 62; TEMP 98.4
--- NOTE | 2018-05-10 12:51 | ECG ---
Date Performed: 05/09/2018 Time Performed: 19:10:18 PTAGE: 72 years EKG: Sinus rhythm NORMAL ECG Since the PREVIOUS TRACING , no significant change noted PREVIOUS TRACIN04/21/2013 17.08 DOCTOR: Caryl Manjarrez Interpretating Date/Time 05/10/2018 12:48:09
--- NOTE | 2018-05-10 14:05 | MR ---
EXAM DATE: 05/10/2018 1:59 PM EST AGE/SEX: 72 years / Female INDICATIONS: TIA. Confusion. CLINICAL DATA: This is the patient's initial encounter. Patient reports that signs and symptoms have been present for 1 day and indicates a pain score of 0/10. MEDICAL/SURGICAL HISTORY: Transient ischemic attack. Hypertension. section. COMPARISON: [facility], MRA HEAD W/O CONTRAST, 05/10/2018. [facility], MRA BRAIN W/O CONTRAST, 04/22/2013. . TECHNIQUE: Multiplanar, multisequence examination of the brain was performed without contrast. FINDINGS: Cerebrum: The ventricles are normal for age. No evidence of midline shift, mass lesion, hemorrhage or acute infarction. No extraaxial fluid collections are seen. An empty sella is noted. White Matter: Minimal periventricular and subcortical white matter small vessel ischemic changes are noted bilaterally. Posterior Fossa: The cerebellum and brainstem are intact. The 4th ventricle is midline. The cerebel lopontine angle is unremarkable. The cerebellar tonsils are normal in position. Diffusion Imaging: No focal areas of restricted diffusion are seen. No evidence of acute infarction . Extracranial: The visualized portions of the orbits and paranasal sinuses are unremarkable. CONCLUSION: 1. No acute infarct, acute hemorrhage, midline shift or extra-axial fluid collection. 2. Minimal periventricular and subcortical white matter small vessel ischemic changes bilaterally. 3. Empty sella. Electronically signed by: Tereso Covarrubias MD 05/10/2018 2:04 PM EST
--- NOTE | 2018-05-10 14:16 | MR ---
EXAM DATE: 05/10/2018 2:11 PM EST AGE/SEX: 72 years / Female INDICATIONS: TIA. CLINICAL DATA: This is the patient's initial encounter. Patient reports that signs and symptoms have been present for 2 days and indicates a pain score of 0/10. MEDICAL/SURGICAL HISTORY: Hypertension. Transient ischemic attack. section. COMPARISON: [facility], MR HEAD W/O CONTRAST, 05/10/2018. . TECHNIQUE: 3D [id number] MRA was performed. Source images, multiplanar STS MIP, and 3D volum e MIP reconstructions were reviewed. FINDINGS: The distal internal carotid arteries are widely patent bilaterally. 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 This area measures approximately 3 mm. The left A1 arises directly from this. The middle cerebral circulation is widely patent and normal in caliber bilaterally. The right vertebral is atretic. The left vert is the dominant supply to the basilar. The basilar is w idely patent. The posterior cerebrals are widely patent. CONCLUSION: 1. 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 This area me asures approximately 2.7 x 3.9 mm. The left A1 appears to arise directly from this. 2. Incidental atretic right vertebral. 3. No large or central vessel occlusion. Electronically signed by: Juan Madera MD 05/10/2018 2:15 PM EST
[2018-05-10 17:56] LABS: Hemoglobin A1c 5.5 % (4.3-6.0)
== END 2018-05-10 07:30 | disposition home or self-care (01) ==
LOC: PHED 18:16 → PHEDA 20:13 → PH3 22:00
PROVIDERS: ADMIT Hospitalist; ATTEND Hospitalist